=== PATIENT | female | born 1985 | race Caucasian/White ===

== ENCOUNTER 2022-12-17 17:46 | Emergency (ER) | payer BC, SELFPAY ==
[2022-12-17 17:59] VITALS: BP 134/87; PULSE 72; RESP 16; TEMP 36.7; O2SAT 97; BMI 31.9
[2022-12-17 18:06] VITALS: PULSE 83
--- NOTE | 2022-12-17 18:29 | ED.NECK ---
HPI - Neck Pain/Injury General Date Seen: 12/17/22 Chief Complaint: Neck Injury/Pain Stated Complaint: Left neck and body pain Time Seen by Provider: 12/17/22 17:47 Source: patient Mode of arrival: ambulatory Limitations: no limitations History of Present Illness HPI Narrative: Patient is a 37-year-old woman with history of multiple bouts of neck pain, who says she woke up on Tuesday morning with pain in the left side of her neck. It is really more in the left trapezius. It radiates some up into the side of her neck and then down toward her shoulder blade. She says she has never had anything quite this bad however. She denies trauma, fevers, weakness or numbness. She occasionally has a sharp pain that shoots down her left arm but this is not consistent. She has gone to her chiropractor couple of time and has had graston to that area. She says it has helped but then the symptoms come back. She has trouble with stomach irritation so she really has not been taking anything for pain, but she did try to take some ibuprofen earlier today because she was desperate. She has been using ice, she has tried Salonpas and a hot pack as well. It just does not seem to be letting go. She does have a history of a bone cyst diagnosed in 2013 which had completely resolved on CT scan in 2019 which was done for recurrent left-sided neck pain. General health is otherwise good. She does not smoke or drink. No IV drug use. Related Data Home Medications Medication Instructions Recorded Confirmed amitriptyline 10 mg tablet 20 mg PO 12/17/22 fluoxetine 20 mg capsule 20 mg PO DAILY 12/17/22 12/17/22 fluticasone propionate 50 1 spray intranasal DAILY 12/17/22 12/17/22 mcg/actuation nasal spray,suspension rizatriptan 10 mg disintegrating PO 12/17/22 tablet Previous Rx's Medication Instructions Recorded diazepam 10 mg tablet (Valium) 10 mg PO QHS PRN #7 tabs 12/17/22 Allergies Allergy/AdvReac Type Severity Reaction Status Date / Time No Known Drug Allergies Allergy Verified 12/17/22 18:05 Review of Systems Status of ROS: Reports: 6 or more systems reviewed and unremarkable except as noted in History and below PFSH PFSH Social History Smoking Status: Never smoker Do you use any of these nicotine containing products: None Second hand tobacco smoke exposure: No How often do you have a drink containing alcohol: never AUDIT-C Alcohol total score: 0 Non-prescribed substance use: denies use Exam Narrative: Exam Narrative: Vital signs as noted above. In general, an alert, well-appearing patient. Looks comfortable. Head: Normocephalic, atraumatic. Eyes: Pupils are equal reactive. Extraocular movements are full. Conjunctivae are normal. ENT: Mucous membranes are moist. Throat is normal. Neck: Normal in appearance without swelling or erythema. Minimal tenderness in the neck itself. She has full flexion, extension to about 15?. Rotation is preserved although flexion to the side on the left is restricted secondary to pain. She has reproducible pain and tenderness in the trapezius muscle on the left where she has palpable muscle spasm. Heart: Regular rate and rhythm. No murmur or rub. Lungs: Clear bilaterally. No increased work of breathing, crackles or wheezes. Extremities: Well perfused. Upper extremities are normal in appearance, pulses intact. Neurologic: Patient is alert and oriented to person and place. Speech is fluent. Face is symmetric. Moves all extremities equally. Upper extremities are 5 5 in strength bilaterally. Sensation intact to light touch. Affect: Normal. Skin: Warm and dry. Well perfused. Const: Vital Signs, click to edit/add: Vital Signs - 24 hr 12/17/22 17:59 12/17/22 18:06 Temperature 98.1 F Pulse Rate [Left P ulse Oximeter] 72 Pulse Rate [Pulse Oximeter] 83 Respiratory Rate 16 Blood Pressure [Ri ght Upper Arm] 134/87 Pulse Oximetry 97 Oxygen Delivery Me thod Room Air Documenting provider has reviewed patient's vital signs: yes Course Course Hospital Course: Patient presents overall with symptoms consistent most likely with muscle spasm in the trapezius region. They are not red flags here suggesting that she needs imaging of her neck. She does not have symptoms consistent with vertebral artery dissection. She is afebrile and nontoxic, I am not suspicious of an infectious cause for her symptoms. She has identifiable muscle spasm on the left. Symptoms have been there for a couple of days, which is certainly within the realm of what might be expected for muscle spasm in this region. I have suggested that we try some Valium at night for a couple of days and see if we can improve her symptomatically. We discussed that she can try ibuprofen and Tylenol together and see if that provides any relief for her in terms of pain. Prilosec might be helpful if she is worried about stomach irritation. Otherwise I think all the measure she is doing in terms of heat and ice, Salonpas or Biofreeze are reasonable. Massage may be helpful as well. If not improving with conservative measures over the next 7-10 days would recommend primary care follow-up. Discussed that it is possible symptoms could be related to disc herniation but she does not have radicular symptoms at present, and I think improvement with steroids is less likely. Given her concerns about her stomach I am going to hold off on steroids at this time, those can be added if she is not improving or if she develops symptoms that are more suggestive of radiculopathy. If symptoms change, if she has severe uncontrolled pain, weakness or numbness, fevers, etcetera, return to the emergency department for re-evaluation. Vital Signs Vital signs: Initial Vital Signs Temperature 98.1 F 12/17/22 17:59 Temperature Source Temporal Artery Scan 12/17/22 17:59 Pulse Rate 72 12/17/22 17:59 Respiratory Rate 16 12/17/22 17:59 Blood Pressure 134/87 12/17/22 17:59 Blood Pressure Mean 102 12/17/22 17:59 Blood Pressure Position Supine 12/17/22 17:59 Pulse Oximetry 97 12/17/22 17:59 Oxygen Delivery Method Room Air 12/17/22 17:59 Vital Signs Temperature 98.1 F 12/17/22 17:59 Pulse Rate 72 12/17/22 17:59 Respiratory Rate 16 12/17/22 17:59 Blood Pressure 134/87 12/17/22 17:59 Pulse Oximetry 97 12/17/22 17:59 Oxygen Delivery Method Room Air 12/17/22 17:59 Temperature 98.1 F 12/17/22 17:59 Pulse Rate 83 12/17/22 18:06 Respiratory Rate 16 12/17/22 17:59 Blood Pressure 134/87 12/17/22 17:59 Pulse Oximetry 97 12/17/22 17:59 Oxygen Delivery Method Room Air 12/17/22 17:59 Discharge Plan Discharge Clinical Impression: Muscle spasm of shoulder region Patient Disposition: Home, Self-Care Condition: Stable Instructions: Muscle Spasm (ED) Additional Instructions: You can use ibuprofen 1-2 tablets plus 2 extra-strength Tylenol up to 3 times a day with food. If you have trouble with the ibuprofen, Prilosec can help protect your stomach. Valium at night as discussed. If you have worsening symptoms such as fever, weakness or numbness, severe uncontrolled pain, return at any time for re-evaluation. Otherwise, would recommend primary care follow-up if your symptoms are not improving over the next 7-10 days. Prescriptions: New diazepam [Valium] 10 mg tablet 10 mg PO QHS PRNQty: 7 0RF No Action amitriptyline 10 mg tablet 20 mg PO rizatriptan 10 mg tablet,disintegrating PO fluoxetine 20 mg capsule 20 mg PO DAILY fluticasone propionate 50 mcg/actuation spray,suspension 1 spray INTRANASAL DAILY Follow Up/Referrals: Georgina Pickard DO [Primary Care Provider] - Stand Alone Forms: F[employer]ye Info Instructions
[2022-12-17 19:04] VITALS: BP 134/94; PULSE 71; O2SAT 98
[2022-12-17 19:05] VITALS: PULSE 69; O2SAT 97
== END 2022-12-17 19:12 | disposition home or self-care (01) ==
LOC: ED 18:27
PROVIDERS: Emergency Provider Emergency Medicine; PCP Family Medicine
DX: M25.522 Pain in left elbow (principal); M62.838 Other muscle spasm
CPT/HCPCS: 99283; 99284